=== PATIENT | male | born 1940 | race Asian ===

== ENCOUNTER 2019-12-24 19:49 | Inpatient (IN) | payer OTHER, MEDICAID ==
[~2019-12-24] VITALS: Ht 180.3 cm; Wt 52.5 kg
[2019-12-24 20:38] LABS: RED CELL DISTRIBUTION WIDTH 12.9 % (11.5-14.5)
[2019-12-24 20:40] LABS: PLATELET COUNT 431 x10^3mcL (130-400)
[2019-12-24 20:46] LABS: CALCIUM 8.6 mg/dL (8.5-10.1); CARBON DIOXIDE 24.9 mmol/L (21-32); CHLORIDE SERUM 105 mmol/L (98-107); CREATININE SERUM 1.8 mg/dL (0.7-1.3); GLUCOSE SERUM 263 mg/dL (74-106); POTASSIUM SERUM 4.1 mmol/L (3.5-5.1); SODIUM SERUM 142 mmol/L (136-145)
[2019-12-24 20:52] LABS: ALKALINE PHOSPHATASE 80 U/L (46-116); ALT/SGPT 14 U/L (16-63); AST/SGOT 48 U/L (15-37); BILIRUBIN TOTAL 0.5 mg/dL (0.20-1.00); TOTAL PROTEIN, SERUM 8.2 g/dL (6.4-8.2)
[2019-12-24 20:54] LABS: ALBUMIN 2.8 g/dL (3.4-5.0); CHOLESTEROL 104 mg/dL (<200)
[2019-12-24 21:01] LABS: BAND NEUTROPHIL 15 % (0-10); BASOPHIL 0 % (0-2); MONOCYTE 1 % (0-7); PLATELET MORPHOLOGY PLATELETS INCREASED; SEGMENTED NEUTROPHILS 80 % (37-75); rbc morphology (normal/abnorm) NORMAL (NORMAL)
[2019-12-24 23:10] VITALS: BP 118/34
[2019-12-25] VITALS (17 sets, daily range): BP systolic 84–141; BP diastolic 38–74
[2019-12-25 00:14] LABS: CHOLESTEROL/HDL RATIO 2.5
[2019-12-25 00:40] LABS: FREE T4 1.13 ng/dL (0.76-1.46); FREE THYROXINE INDEX 2.7 ug/dL (1.4-4.5); T4(THYROXINE) 7.4 ug/dL (4.7-13.3)
[2019-12-25] MEDS ORDERED: FINASTERIDE1 MG PO (01:19)
[2019-12-25] MEDS ORDERED: METFORMIN HCL500 M4 (01:19)
[2019-12-25] MEDS ORDERED: LIPITOR10 MG (01:20)
[2019-12-25] MEDS ORDERED: LODOSYN25 MG PO (01:20)
[2019-12-25] MEDS ORDERED: NATURE'S BLEND F1 MG (01:21)
[2019-12-25] MEDS ORDERED: COZAAR50 M1 (01:21)
[2019-12-25] MEDS ORDERED: MONTELUKAST SOD10 M1 (01:22)
[2019-12-25] MEDS ORDERED: MELOXICAM7.5 M1 (01:23)
[2019-12-25] MEDS ORDERED: ACID REDUCER20 MG (01:23)
[2019-12-25 05:12] LABS: CALCIUM 7.7 mg/dL (8.5-10.1); CARBON DIOXIDE 25.9 mmol/L (21-32); CHLORIDE SERUM 112 mmol/L (98-107); CREATININE SERUM 1.3 mg/dL (0.7-1.3); GLUCOSE SERUM 147 mg/dL (74-106); MAGNESIUM 1.9 mg/dL (1.8-2.4); POTASSIUM SERUM 3.7 mmol/L (3.5-5.1); SODIUM SERUM 147 mmol/L (136-145)
[2019-12-25 05:39] LABS: PLATELET COUNT 349 x10^3mcL (130-400)
[2019-12-25 05:49] LABS: BASOPHIL % 0 % (0-2)
[2019-12-25 10:24] LABS: T3 TOTAL 0.5 ng/mL
[2019-12-26] VITALS (19 sets, daily range): BP systolic 100–169; BP diastolic 53–84
[2019-12-26 05:40] LABS: ALKALINE PHOSPHATASE 74 U/L (46-116); ALT/SGPT 14 U/L (16-63); AST/SGOT 26 U/L (15-37); BILIRUBIN TOTAL 0.35 mg/dL (0.20-1.00); CALCIUM 7.9 mg/dL (8.5-10.1); CARBON DIOXIDE 25.3 mmol/L (21-32); CHLORIDE SERUM 113 mmol/L (98-107); CREATININE SERUM 1.2 mg/dL (0.7-1.3); GLUCOSE SERUM 142 mg/dL (74-106); PHOSPHOROUS 2.1 mg/dL (2.5-4.9); POTASSIUM SERUM 3.4 mmol/L (3.5-5.1); SODIUM SERUM 147 mmol/L (136-145)
[2019-12-26 05:41] LABS: ALBUMIN 1.7 g/dL (3.4-5.0); PLATELET COUNT 296 x10^3mcL (130-400); RED CELL DISTRIBUTION WIDTH 12.9 % (11.5-14.5); TOTAL PROTEIN, SERUM 5.9 g/dL (6.4-8.2)
[2019-12-26 05:48] LABS: BASOPHIL % 0 % (0-2)
[2019-12-27] VITALS (17 sets, daily range): BP systolic 83–161; BP diastolic 50–81
[2019-12-27 05:14] LABS: PLATELET COUNT 308 x10^3mcL (130-400); RED CELL DISTRIBUTION WIDTH 13.1 % (11.5-14.5)
[2019-12-27 05:42] LABS: ALKALINE PHOSPHATASE 83 U/L (46-116); ALT/SGPT 16 U/L (16-63); AST/SGOT 24 U/L (15-37); BILIRUBIN TOTAL 0.36 mg/dL (0.20-1.00); CALCIUM 8.1 mg/dL (8.5-10.1); CARBON DIOXIDE 26.1 mmol/L (21-32); CHLORIDE SERUM 114 mmol/L (98-107); CREATININE SERUM 0.9 mg/dL (0.7-1.3); GLUCOSE SERUM 167 mg/dL (74-106); MAGNESIUM 1.9 mg/dL (1.8-2.4); POTASSIUM SERUM 3.3 mmol/L (3.5-5.1); SODIUM SERUM 147 mmol/L (136-145)
[2019-12-27 05:46] LABS: ALBUMIN 1.5 g/dL (3.4-5.0); TOTAL PROTEIN, SERUM 6.1 g/dL (6.4-8.2)
[2019-12-27 06:33] LABS: BAND NEUTROPHIL 1 % (0-10); MONOCYTE 7 % (0-7); SEGMENTED NEUTROPHILS 85 % (37-75); rbc morphology (normal/abnorm) NORMAL (NORMAL)
[2019-12-27 14:47] LABS: UA SPECIFIC GRAVITY 1.025 (1.005-1.035); microscopic required? YES; urine erythrocyte 2+ (NEGATIVE)
[2019-12-28] VITALS (18 sets, daily range): BP systolic 91–144; BP diastolic 50–73
[2019-12-28 07:10] LABS: PLATELET COUNT 300 x10^3mcL (130-400); RED CELL DISTRIBUTION WIDTH 12.7 % (11.5-14.5)
[2019-12-28 07:17] LABS: BASOPHIL % 0 % (0-2)
[2019-12-28 08:32] LABS: CALCIUM 7.6 mg/dL (8.5-10.1); CARBON DIOXIDE 26.9 mmol/L (21-32); CHLORIDE SERUM 107 mmol/L (98-107); CREATININE SERUM 0.8 mg/dL (0.7-1.3); GLUCOSE SERUM 140 mg/dL (74-106); MAGNESIUM 1.7 mg/dL (1.8-2.4); PHOSPHOROUS 2.4 mg/dL (2.5-4.9); POTASSIUM SERUM 3.7 mmol/L (3.5-5.1); SODIUM SERUM 141 mmol/L (136-145)
[2019-12-29] VITALS (20 sets, daily range): BP systolic 91–167; BP diastolic 49–83
[2019-12-29 06:33] LABS: PLATELET COUNT 296 x10^3mcL (130-400); RED CELL DISTRIBUTION WIDTH 12.9 % (11.5-14.5)
[2019-12-29 06:55] LABS: BASOPHIL % 0 % (0-2)
[2019-12-29 08:02] LABS: CALCIUM 7.9 mg/dL (8.5-10.1); CARBON DIOXIDE 29.5 mmol/L (21-32); CHLORIDE SERUM 104 mmol/L (98-107); CREATININE SERUM 0.9 mg/dL (0.7-1.3); GLUCOSE SERUM 138 mg/dL (74-106); MAGNESIUM 2.1 mg/dL (1.8-2.4); PHOSPHOROUS 3.2 mg/dL (2.5-4.9); POTASSIUM SERUM 3.9 mmol/L (3.5-5.1); SODIUM SERUM 138 mmol/L (136-145)
[2019-12-30] VITALS (18 sets, daily range): BP systolic 92–144; BP diastolic 49–78; Ht 180.3 cm; Wt 52.5 kg
[2019-12-30 05:14] LABS: BASOPHIL % 0.3 % (0-2); PLATELET COUNT 296 x10^3mcL (130-400); RED CELL DISTRIBUTION WIDTH 13.1 % (11.5-14.5)
[2019-12-30 05:20] LABS: CALCIUM 7.9 mg/dL (8.5-10.1); CARBON DIOXIDE 29.9 mmol/L (21-32); CHLORIDE SERUM 105 mmol/L (98-107); CREATININE SERUM 0.9 mg/dL (0.7-1.3); GLUCOSE SERUM 151 mg/dL (74-106); POTASSIUM SERUM 3.6 mmol/L (3.5-5.1); SODIUM SERUM 140 mmol/L (136-145)
[2019-12-31] VITALS (14 sets, daily range): BP systolic 79–153; BP diastolic 46–79
[2019-12-31 05:36] LABS: BASOPHIL % 0.5 % (0-2); PLATELET COUNT 325 x10^3mcL (130-400); RED CELL DISTRIBUTION WIDTH 13.2 % (11.5-14.5)
[2019-12-31 06:20] LABS: CALCIUM 8.1 mg/dL (8.5-10.1); CARBON DIOXIDE 31.2 mmol/L (21-32); CHLORIDE SERUM 106 mmol/L (98-107); GLUCOSE SERUM 147 mg/dL (74-106); MAGNESIUM 2.1 mg/dL (1.8-2.4); PHOSPHOROUS 3.5 mg/dL (2.5-4.9); POTASSIUM SERUM 3.7 mmol/L (3.5-5.1); SODIUM SERUM 140 mmol/L (136-145)
[2019-12-31 06:29] LABS: ALBUMIN 1.3 g/dL (3.4-5.0)
[2020-01-01 03:00] VITALS: BP 156/82
[2020-01-01 05:53] LABS: BASOPHIL % 0.5 % (0-2)
[2020-01-01 05:57] LABS: PLATELET COUNT 467 x10^3mcL (130-400)
[2020-01-01 06:11] LABS: CALCIUM 8.6 mg/dL (8.5-10.1); CARBON DIOXIDE 28.9 mmol/L (21-32); CHLORIDE SERUM 105 mmol/L (98-107); CREATININE SERUM 0.9 mg/dL (0.7-1.3); GLUCOSE SERUM 143 mg/dL (74-106); MAGNESIUM 2.2 mg/dL (1.8-2.4); PHOSPHOROUS 2.4 mg/dL (2.5-4.9); POTASSIUM SERUM 3.6 mmol/L (3.5-5.1); SODIUM SERUM 141 mmol/L (136-145)
[2020-01-01 07:55] VITALS: BP 143/66
[2020-01-01 14:59] VITALS: BP 147/70
[2020-01-01 21:03] VITALS: BP 135/65
[2020-01-02 05:43] VITALS: BP 155/56
[2020-01-02 07:34] VITALS: BP 135/63
[2020-01-02 07:40] LABS: BASOPHIL % 0.2 % (0-2); RED CELL DISTRIBUTION WIDTH 12.9 % (11.5-14.5)
[2020-01-02 07:49] LABS: CALCIUM 8.3 mg/dL (8.5-10.1); CHLORIDE SERUM 105 mmol/L (98-107); CREATININE SERUM 0.9 mg/dL (0.7-1.3); GLUCOSE SERUM 134 mg/dL (74-106); MAGNESIUM 2.1 mg/dL (1.8-2.4); PHOSPHOROUS 2.6 mg/dL (2.5-4.9); POTASSIUM SERUM 3.2 mmol/L (3.5-5.1); SODIUM SERUM 140 mmol/L (136-145)
[2020-01-02 08:12] LABS: PLATELET COUNT 484 x10^3mcL (130-400)
[2020-01-02 11:47] VITALS: BP 138/67
[2020-01-02] MEDS ORDERED: REQUIP0.25 M1 PO (17:20)
[2020-01-02 17:53] VITALS: BP 138/67
[2020-01-02 21:15] VITALS: BP 121/61
[2020-01-03 06:13] VITALS: BP 123/59
[2020-01-03 06:21] LABS: BASOPHIL % 0.3 % (0-2); RED CELL DISTRIBUTION WIDTH 12.9 % (11.5-14.5)
[2020-01-03 06:39] LABS: PLATELET COUNT 497 x10^3mcL (130-400)
[2020-01-03 06:46] LABS: CALCIUM 8.7 mg/dL (8.5-10.1); CARBON DIOXIDE 27.1 mmol/L (21-32); CHLORIDE SERUM 106 mmol/L (98-107); CREATININE SERUM 0.9 mg/dL (0.7-1.3); GLUCOSE SERUM 130 mg/dL (74-106); MAGNESIUM 2.3 mg/dL (1.8-2.4); PHOSPHOROUS 2.9 mg/dL (2.5-4.9); POTASSIUM SERUM 4.6 mmol/L (3.5-5.1); SODIUM SERUM 138 mmol/L (136-145)
[2020-01-03 08:12] VITALS: BP 119/57
[2020-01-03 12:07] VITALS: BP 121/63
[2020-01-03 15:54] VITALS: BP 122/62
[2020-01-04 05:55] VITALS: BP 148/63
[2020-01-04 07:48] VITALS: BP 133/79
[2020-01-04 11:45] VITALS: BP 146/74
[2020-01-04 16:01] VITALS: BP 138/59
[2020-01-04 19:33] VITALS: BP 145/75
[2020-01-05 04:13] VITALS: BP 139/67
[2020-01-05 07:01] LABS: BASOPHIL % 0.2 % (0-2); RED CELL DISTRIBUTION WIDTH 13.1 % (11.5-14.5)
[2020-01-05 07:45] LABS: PLATELET COUNT 673 x10^3mcL (130-400)
[2020-01-05 08:02] VITALS: BP 124/69
[2020-01-05 08:34] LABS: CALCIUM 9.7 mg/dL (8.5-10.1); CARBON DIOXIDE 18.9 mmol/L (21-32); CHLORIDE SERUM 102 mmol/L (98-107); CREATININE SERUM 0.9 mg/dL (0.7-1.3); GLUCOSE SERUM 87 mg/dL (74-106); POTASSIUM SERUM 3.9 mmol/L (3.5-5.1); SODIUM SERUM 140 mmol/L (136-145)
[2020-01-05 11:31] VITALS: BP 139/75
[2020-01-05 15:42] VITALS: BP 123/56
[2020-01-06 05:55] VITALS: BP 147/71
[2020-01-06 07:12] LABS: BASOPHIL % 1.3 % (0-2)
[2020-01-06 07:30] LABS: CALCIUM 8.9 mg/dL (8.5-10.1); CARBON DIOXIDE 27.7 mmol/L (21-32); CHLORIDE SERUM 105 mmol/L (98-107); CREATININE SERUM 0.9 mg/dL (0.7-1.3); GLUCOSE SERUM 136 mg/dL (74-106); POTASSIUM SERUM 4.2 mmol/L (3.5-5.1); SODIUM SERUM 137 mmol/L (136-145)
[2020-01-06 07:58] VITALS: BP 117/53
[2020-01-06 10:27] LABS: PLATELET COUNT 689 x10^3mcL (130-400)
[2020-01-06 14:21] VITALS: BP 117/53
== END 2020-01-06 16:18 | DRG 853 ==
LOC: ED 19:49 → IC 21:24 → MU 21:24 → IC 12-25 00:16 → DU 01-01 14:05 → MU 01-02 10:39
PROVIDERS: Emergency Medicine; Internal Medicine; Internal Medicine Infectious Disease; ADMIT Family Medicine
PROC: 5A1955Z Respiratory Ventilation, Greater than 96 Consecutive Hours (ICD-10-PCS; principal; 2019-12-24)
PROC: 0BH17EZ Insertion of Endotracheal Airway into Trachea, Via Natural or Artificial Opening (ICD-10-PCS; 2019-12-24)
PROC: 0WCQ8ZZ Extirpation of Matter from Respiratory Tract, Via Natural or Artificial Opening Endoscopic (ICD-10-PCS; 2019-12-28)
PROC: 0B9H8ZX Drainage of Lung Lingula, Via Natural or Artificial Opening Endoscopic, Diagnostic (ICD-10-PCS; 2019-12-28)
PROC: 0B9D8ZX Drainage of Right Middle Lung Lobe, Via Natural or Artificial Opening Endoscopic, Diagnostic (ICD-10-PCS; 2019-12-28)
PROC: 0DH68UZ Insertion of Feeding Device into Stomach, Via Natural or Artificial Opening Endoscopic (ICD-10-PCS; 2020-01-05)
DX: A41.9 Sepsis, unspecified organism (principal); J96.01 Acute respiratory failure with hypoxia; J69.0 Pneumonitis due to inhalation of food and vomit; E43 Unspecified severe protein-calorie malnutrition; N17.0 Acute kidney failure with tubular necrosis; T17.590A Other foreign object in bronchus causing asphyxiation, initial encounter; B96.20 Unspecified Escherichia coli [E. coli] as the cause of diseases classified elsewhere; R13.10 Dysphagia, unspecified; E86.0 Dehydration; E11.65 Type 2 diabetes mellitus with hyperglycemia; G20 Parkinson's disease; M19.90 Unspecified osteoarthritis, unspecified site; I10 Essential (primary) hypertension; X58.XXXA Exposure to other specified factors, initial encounter; Y92.039 Unspecified place in apartment as the place of occurrence of the external cause
CPT/HCPCS: 31645; 36600; 43235; 82962; 83880; 84439; 85378; 87804; 92526-GN; 92610-GN; 97110-GP; 97530-GP; A4628; C9113; G0378; G0480; J0456; J0690; J0696; J1200; J1450; J1610; J1644; J2250; J2310; J2543; J2704; J3010; J3370; J3475; J3480; J3490; J7030; J7050; J7060; J7120; Q0092